=== PATIENT | female | born 1970 | race Caucasian/White ===

== ENCOUNTER 2023-02-18 06:40 | Day surgery (SDC) | payer BC ==
--- NOTE | 2023-02-11 14:14 | HP ---
DATE OF SURGERY: 02/18/2023 HISTORY OF PRESENT ILLNESS: The patient is a 52-year-old female presented for four year follow up of some colon polyps. Her mother may have had colon cancer well. She has no other complaints at this time. PAST MEDICAL HISTORY: Hypertension, hyperlipidemia, thyroid, asthma, anxiety, depression. PAST SURGICAL HISTORY: Uterine ablation. section. Tubal ligation. ALLERGIES: NKDA. MEDICATIONS: Bupropion, atorvastatin, venlafaxine, levothyroxine, albuterol, Seroquel. FAMILY HISTORY: Colon cancer. Cervical cancer. Heart disease. Thyroid. SOCIAL HISTORY: Occasional alcohol. REVIEW OF SYSTEMS: CONSTITUTIONAL: Denies fever or chills. CHEST: Denies shortness of breath. CVS: Denies chest pain. ABDOMEN: Denies abdominal pain. PHYSICAL EXAMINATION: GENERAL: No acute distress. CHEST: Nonlabored. No shortness of breath. CVS: Regular rate and rhythm. ABDOMEN: Soft. IMPRESSION: History of colon polyp and family history of colon cancer. PLAN: Colonoscopy with Dr. Poncho Cummings. As dictated by Lolita Leon NP.
[~2023-02-18 06:40] MED LIST: DIPRIVAN 200 MG/20 ML IV ONE; Xylocaine-Mpf 2% 5 Ml Vial ONE
[2023-02-18] MEDS ORDERED: Lactated Ringers 1,000 ML IV SCH (07:00)
[2023-02-18 07:25] VITALS: RESP 18
[2023-02-18] MEDS ORDERED: Versed 2 MG/2 ML Injection ONE (08:44)
[2023-02-18] MEDS ORDERED: DIPRIVAN 200 MG/20 ML IV ONE (08:59)
[2023-02-18 10:14] VITALS: TEMP 98.7; O2SAT 99
[2023-02-18 10:27] VITALS: BP 148/78; PULSE 72
--- NOTE | 2023-02-18 11:28 | OP ---
SURGERY DATE/TIME: 02/18/2023 0842 PREOPERATIVE DIAGNOSIS: Follow up polyps, family history of colon cancer. POSTOPERATIVE DIAGNOSES: 1) Three rectal polyps one jar. 2) Moderate internal hemorrhoids. PROCEDURE: Colonoscopy complete to cecum with hot polypectomy rectum x3 submitted in one jar. SURGEON: Poncho Cummings M.D. [employer] REPORTER: Kush Grimes M.D., [facility] Resident III. ANESTHESIA: General. COMPLICATIONS: None. CONDITION: Stable. INDICATION: The patient was brought in for follow up. She has a family history of colon cancer and a personal history of polyps. She is about four years at this time. DESCRIPTION OF PROCEDURE: She is taken to endoscopy. Left lateral decubitus position Anal digital examination satisfactory. Scope introduced. There was moderate internal hemorrhoids. The rectum was normal. The scope advanced to the cecum. Base of the cecum, ileocecal valve, appendiceal orifice normal. Ascending, hepatic, transverse, splenic, descending, sigmoid all normal. In the upper rectum there are three polyps taken with hot biopsy forceps and submitted in one container. Anticipated follow up three to five years.
== END 2023-02-18 10:15 | disposition home or self-care (01) ==
LOC: SDC 06:40
PROVIDERS: ATTEND Surgery
DX: Z09 Encounter for follow-up examination after completed treatment for conditions other than malignant neoplasm (principal); Z86.010 Personal history of colon polyps; Z80.0 Family history of malignant neoplasm of digestive organs; K62.1 Rectal polyp; K64.8 Other hemorrhoids
CPT/HCPCS: J2250; J2704